=== PATIENT | male | born 1995 | race African-American/Black ===

== ENCOUNTER 2019-07-22 06:59 | Emergency (ER) | payer OTHER ==
[~2019-07-22] VITALS: Ht 190.5 cm; Wt 85.7 kg
[2019-07-22 07:03] VITALS: BP 116/74; Ht 190.5 cm; Wt 85.7 kg
== END 2019-07-22 09:00 | disposition home or self-care (01) ==
LOC: ED 06:59
DX: R07.89 Other chest pain (principal); Z91.013 Allergy to seafood
CPT/HCPCS: J1885